=== PATIENT | female | born 1995 | race Caucasian/White ===

== ENCOUNTER 2019-02-18 07:08 | Outpatient (CLI) | payer MEDICAID ==
[2019-02-18 07:46] VITALS: BP 100/56
[2019-02-18] MEDS ORDERED: LACTATED RINGERS 1,000 ML IV SCH (08:00)
--- NOTE | 2019-02-18 12:02 | Ultrasound Report ---
ULTRASOUND BIOPHYSICAL PROFILE AND LIMITED OB ULTRASOUND INDICATION / CLINICAL INFORMATION: well-being. evaluation and [place]. COMPARISON: None available. FINDINGS: BREATHING MOVEMENT = 2 GROSS BODY MOVEMENT = 2 TONE = 2 QUALITATIVE AMNIOTIC FLUID VOLUME = 2 TOTAL BIOPHYSICAL SCORE = 8/8 AMNIOTIC FLUID INDEX (cm) = 10.5 PRESENTATION: Cephalic. HEART RATE (beats per minute): 123 IMPRESSION: biophysical profile = 03/19 Signer Name: Wes Burks MD Signed: 02/18/2019 11:57 AM Workstation Name: [id number]
== END 2019-02-18 10:39 | disposition home or self-care (01) ==
LOC: TRG 07:08
PROVIDERS: ATTEND Obstetrics & Gynecology
DX: O62.9 Abnormality of forces of labor, unspecified (principal); Z3A.38 38 weeks gestation of pregnancy
CPT/HCPCS: 59025; 76815; 76819; 96360; 96361; J7120

== ENCOUNTER 2019-02-26 03:52 | Outpatient (CLI) | payer MEDICAID ==
[2019-02-26 04:22] VITALS: BP 104/60
== END 2019-02-26 05:16 | disposition home or self-care (01) ==
LOC: TRG 03:52
PROVIDERS: ATTEND Obstetrics & Gynecology
DX: O62.8 Other abnormalities of forces of labor (principal); Z3A.40 40 weeks gestation of pregnancy
CPT/HCPCS: 59025

== ENCOUNTER 2019-03-04 09:01 | Inpatient (IN) | payer MEDICAID ==
[2019-03-04] MEDS ORDERED: PHENERGAN PO PRN (10:30)
[2019-03-04] MEDS ORDERED: SUBLIMAZE IV PRN (10:30)
[2019-03-04] MEDS ORDERED: XYLOCAINE 2% INFILTRATI NR (10:30)
[2019-03-04] MEDS ORDERED: BRETHINE SUB-Q PRN (10:30)
[2019-03-04] MEDS ORDERED: BRETHINE IVP PRN (10:30)
[2019-03-04 10:53] LABS: Hematocrit 33.3 % (30.3-42.9); Mean Corpuscular HGB Conc 36 % (30-34); Mean Corpuscular Volume 85 fl (79-97); Platelet Count 162 K/mm3 (140-440); Red Blood Count 3.91 M/mm3 (3.65-5.03); Red Cell Distribution Width 13.8 % (13.2-15.2)
[2019-03-04] MEDS ORDERED: CYTOTEC VG ONE (11:00)
[2019-03-04] MEDS ORDERED: MINERAL OIL PO PRN (11:00)
[2019-03-04] MEDS ORDERED: ZOFRAN IV PRN (11:00)
[2019-03-04] MEDS ORDERED: LACTATED RINGERS 1,000 ML IV SCH (11:00)
[2019-03-04] MEDS ORDERED: AMPICILLIN/NS 2 GM/100 ML 2 GM/100 ML BAG IV ONE (11:00)
[2019-03-04] MEDS ORDERED: PITOCin/NS 20 UNIT/1000ML DRIP 20 UNITS/1,000 ML BAG IV SCH (11:00)
[2019-03-04] MEDS ORDERED: PITOCin/NS 30 UNIT/500ML 30 UNITS/500 ML BAG IV SCH (11:00)
[2019-03-04] MEDS ORDERED: AMPICILLIN/NS 1 GM/50 ML 1 GM/50 ML BAG IV SCH (15:00)
[2019-03-04] MEDS ORDERED: CYTOTEC ONE (21:32)
[2019-03-04] MEDS: CYTOTEC VG SCH (21:57)
[2019-03-05] MEDS: CYTOTEC VG SCH (00:58)
--- NOTE | 2019-03-05 09:27 | History and Physical Report ---
History of Present Illness Date of examination: 03/05/19 Date of admission: 03/04/19 09:01 Chief complaint: I'm overdue History of present illness: Pt is a 23 year old who presents for post dates induction of labor with EDC 02/28/19. Pt has had an uncomplicated course and started care in the first trimester Past History Past Medical History: no pertinent history Past Surgical History: no surgical history Social history: single - Obstetrical History Expected Date of Delivery: 02/28/19 Actual Gestation: 40 Week(s) 5 Day(s) : 1 Medications and Allergies Allergies Allergy/AdvReac Type Severity Reaction Status Date / Time latex Allergy Itching Verified 02/18/19 07:40 Home Medications Medication Instructions Recorded Confirmed Last Taken Type Vit-Fe Fumar-FA [ 1 tab PO DAILY 02/26/19 02/26/19 02/25/19 History Vitamin] Active Meds: Active Medications Ephedrine Sulfate (Ephedrine Sulfate) 10 mg IV Q2M PRN PRN Reason: Hypotension Fentanyl (Sublimaze) 100 mcg IV Q2H PRN PRN Reason: Labor Pain Oxytocin/Sodium Chloride (Pitocin/Ns 20 Unit/1000ml Drip) 20 units in 1,000 mls @ 125 mls/hr IV DIRECT YOAN Oxytocin/Sodium Chloride (Pitocin/Ns 30 Unit/500ml) 30 units in 500 mls @ 4 mls/hr IV TITR YOAN; Protocol Last Admin: 03/05/19 09:20 Dose: 4 ml/hr, 4 mls/hr Documented by: Lactated Ringer's (Lactated Ringers) 1,000 mls @ 125 mls/hr IV DIRECT YOAN Last Admin: 03/05/19 07:29 Dose: 125 mls/hr Documented by: Ampicillin Sodium (Ampicillin/Ns 1 Gm/50 Ml) 1 gm in 50 mls @ 100 mls/hr IV Q4H YOAN; Protocol Lidocaine (Xylocaine 2%) 20 ml INFILTRATI ONCE NR Stop: 03/05/19 10:29 Mineral Oil (Mineral Oil) 30 ml PO QHS PRN PRN Reason: Constipation Misoprostol (Cytotec) 25 mcg VG Q3HR YOAN Last Admin: 03/05/19 00:58 Dose: 25 mcg Documented by: Ondansetron HCl (Zofran) 4 mg IV Q8H PRN PRN Reason: Nausea And Vomiting Promethazine HCl (Phenergan) 25 mg PO Q6H PRN PRN Reason: Nausea And Vomiting Terbutaline Sulfate (Brethine) 0.25 mg SUB-Q ONCE PRN PRN Reason: Hyperstimulation/Hypertonicity Terbutaline Sulfate (Brethine) 0.25 mg IVP ONCE PRN PRN Reason: Hyperstimulation/Hypertonicity Review of Systems All systems: negative Genitourinary: leakage of fluid, contractions - Vital Signs Vital signs: Vital Signs Temp 98.1 F 03/04/19 10:29 Temp Pulse Resp BP Pulse Ox 97.5 F L 73 18 105/57 96 03/05/19 07:15 03/05/19 08:09 03/05/19 07:15 03/05/19 08:09 03/04/19 12:18 - Physical Exam Breasts: Cardiovascular: Regular rate, Normal S1, Normal S2 Abdomen: Positive: normal appearance, soft, normal bowel sounds. Negative: distention, tenderness Vulva: both: normal Vagina: Positive: normal moisture. Negative: discharge Cervix: Negative: lesion, discharge Uterus: Positive: normal size, normal contour Adnexa: both: normal Anus/Rectum: Positive: normal perianal skin, heme negative. Negative: rectal mass, hemorrhoids Extremities: Deep Tendon Reflex Grade: Normal +2 - Obstetrical Cervical Dilatation: 1 Cervical Effacement Percentage: 50 station: -3 Uterine Contraction Pattern: Irregular Results Result Diagrams: 03/04/19 10:24 Abnormal lab results 03/04/19 Range/Units 10:24 MCHC 36 H (30-34) % All other labs normal. Assessment and Plan IUP at 40.5 here for post dates induction. Admit to L&D. AROM, begin pitocin. Anticipate .
--- NOTE | 2019-03-05 14:02 | Anesthesia Consultation ---
Anesthesia Consult and Med Hx Date of service: 03/05/19 - Airway Anesthetic Teeth Evaluation: Good ROM Head & Neck: Adequate Mental/Hyoid Distance: Adequate Mallampati Class: Class II Intubation Access Assessment: Probably Good - Pulmonary Exam CTA: Yes - Cardiac Exam Cardiac Exam: RRR - Pre-Operative Health Status ASA Pre-Surgery Classification: ASA2 Proposed Anesthetic Plan: Epidural - Pulmonary Hx Asthma: No COPD: No Hx Pneumonia: No - Cardiovascular System Hx Hypertension: No - Central Nervous System Hx Seizures: No Hx Psychiatric Problems: No - Endocrine Hx Renal Disease: No Hx End Stage Renal Disease: No Hx Hypothyroidism: No Hx Hyperthyroidism: No - Hematic Hx Anemia: No Hx Sickle Cell Disease: No - Other Systems Hx Alcohol Use: No
[2019-03-05] MEDS ORDERED: NARCAN 2 MG/2 ML IV PRN (14:03)
[2019-03-05] MEDS: fentaNYL-BUPIV 2 MCG/ML-0.125% 200 MCG/100 ML BAG EPIDURAL SCH ×2 (14:55→23:37)
--- NOTE | 2019-03-05 22:54 | Event Note ---
Date: 03/05/19 In to see patient. Was informed that patient was 7cm at 2pm this afternoon. Nurse was advised to turn patient to help move head down. Pt just examined and found to be 5cm. Pt has been arom since 0900. Advised staff to turn patient. Will recheck in one hour. If no change plan for c/s secondary to failed induction and failure to progress.
[2019-03-06] MEDS ORDERED: BICITRA PO ONE
[2019-03-06] MEDS ORDERED: ANCEF/STERILE WATER 2 GM/20 ML 2 GM/20 ML SYRINGE IV NR
[2019-03-06] MEDS ORDERED: REGLAN IV ONE
--- NOTE | 2019-03-06 00:02 | Event Note ---
Date: 03/06/19 Pt rechecked and found to have zero change. Plan to proceed with . Consents signed and on chart.
[2019-03-06] MEDS ORDERED: PEPCID IV ONE ×2 (00:03)
[2019-03-06] MEDS ORDERED: REGLAN ONE (00:03)
[2019-03-06] MEDS ORDERED: BICITRA ONE (00:03)
[2019-03-06] MEDS ORDERED: ANCEF/STERILE WATER 2 GM/20 ML 2 GM/20 ML SYRINGE IV ONE (00:03)
[2019-03-06] MEDS ORDERED: XYLOCAINE MPF 2% ONE (00:21)
[2019-03-06] MEDS ORDERED: DECADRON ONE (00:48)
[2019-03-06] MEDS ORDERED: ZOFRAN ONE (00:48)
[2019-03-06] MEDS ORDERED: METHERGINE IM ONE ×2 (01:01→05:12)
--- NOTE | 2019-03-06 01:32 | Procedure Note ---
OB Delivery Note - Delivery Date of Delivery: 03/06/19 Surgeon: SHRUTHI GANDHI Estimated blood loss: other (600) - Section Preop diagnosis: arrest of descent, arrest of dilation Postop diagnosis: same section procedure: section, primary low transverse Disposition: PACU Complications: none Narrative: see op report - A at 1 minute: 8 at 5 minutes: 9 Infant Gender: Male
--- NOTE | 2019-03-06 01:37 | Operative Report ---
Operative Report Operative Report: The operative report for patient Yelena Wills Date of service 03/06/2019 Preoperative diagnosis: Intrauterine at 40-6/7 weeks 2. Failed induction of labor 3. Arrest of descent Postoperative diagnosis: Same with deep transverse arrest Procedure: Neda low transverse section Surgeon: Dr. Heather Watters EBL: 600 mL Urine output: 100 mL IV fluids: 1000 mL Findings: Viable male in the vertex occiput posterior position. Weight 7 lbs. 10 oz. 3484 g Apgars 8 and 9]. Otherwise normal pelvic anatomy Specimens: None Complications: None Procedure: The patient was admitted to the OR with IV running and in place. She was properly identified as herself. Her spinal had been placed in the room and she was already under the effects of anesthesia upon entry into the OR. She was placed in the dorsal supine position with a leftward tilt. A Chand catheter had been inserted in the room. She was then prepped and draped in the normal sterile fashion. An Allis test was used to confirm adequate anesthesia. Once confirmed, the incision was made with the scalpel and carried to the underlying fascia using the scalpel and the Bovie. The fascia was incised in the midline and incision was extended bilaterally using the curved Vázquez scissors. The fascia was then dissected from the underlying rectus muscles in a series of sharp and blunt dissection using the Vázquez scissors. Muscles were in the in the midline sharply using Metzenbaum scissors and the peritoneum was entered into bluntly using the surgeon's fingers. A bladder blade was then placed into the incision to protect the bladder. Following this the bladder flap was created. Hysterotomy incision was then made in the scalpel. Upon uterine entry, the amniotic sac was ruptured for clear fluid. The infant was then delivered in the occiput transverse position. His mouth and nose were suctioned on the field. The cord was clamped and cut and he was handed to the waiting NICU personnel. The placenta was delivered manually and taken off the field. The uterus was then exteriorized and cleared of all clots and debris. The hysterotomy incision was then closed in a running locked fashion using 0 Vicryl. The abdomen was then copiously irrigated with warm normal saline. Following this the uterus was replaced into the abdominal cavity. At this point the muscles were reapproximated in the midline using individual sutures of 0 Vicryl. Following this the fascia was closed in a running fashion using 0 Vicryl. Tissue was then copiously irrigated. Skin was closed in a running fashion using 3-0 Monocryl. The sponge lap needle and instrument counts were correct 2. The patient tolerated the procedure well. She was taken to recovery in stable condition.
[2019-03-06] MEDS ORDERED: NUBAIN IV PRN (01:43)
--- NOTE | 2019-03-06 01:43 | Anesthesia Day of Surgery ---
Anesthesia Day of Surgery - Day of Surgery Patient Examined: Yes Patient H&P Reviewed: Yes Patient is NPO: Yes
[2019-03-06] MEDS ORDERED: ZOFRAN IV PRN (01:44)
[2019-03-06] MEDS ORDERED: PHENERGAN PO PRN (01:44)
[2019-03-06] MEDS ORDERED: DILAUDID IV PRN ×2 (01:44)
[2019-03-06] MEDS ORDERED: PHENERGAN PR PRN (01:44)
[2019-03-06] MEDS ORDERED: NARCAN 0.4 MG/1 ML IV PRN ×2 (01:44→04:54)
[2019-03-06] MEDS ORDERED: SODIUM CHLORIDE FLUSH SYRINGE 10 ML IV NR ×2 (02:00→04:54)
[2019-03-06] MEDS ORDERED: MILK OF MAGNESIA PO PRN (04:54)
[2019-03-06] MEDS ORDERED: PERCOCET 5/325 PO PRN (04:54)
[2019-03-06] MEDS ORDERED: MYLICON PO PRN (04:54)
[2019-03-06] MEDS ORDERED: IBUPROFEN PO PRN (04:54)
[2019-03-06] MEDS ORDERED: PITOCin/NS 20 UNIT/1000ML DRIP 20 UNITS/1,000 ML BAG IV SCH (04:54)
[2019-03-06] MEDS ORDERED: LANSINOH TP PRN (04:54)
[2019-03-06] MEDS ORDERED: TYLENOL PO PRN (04:54)
[2019-03-06] MEDS ORDERED: MORPHINE IV PRN (04:54)
[2019-03-06] MEDS ORDERED: D5LR 1,000 ML IV SCH (04:54)
[2019-03-06] MEDS ORDERED: TUCKS PAD TP PRN (04:54)
[2019-03-06] MEDS: METHERGINE PO SCH ×3 (06:07→21:01)
[2019-03-06] MEDS: TORADOL IV SCH ×3 (06:07→20:55)
[2019-03-06] MEDS: ANCEF/NS 1 GM/50 ML 1 GM/50 ML BAG IV SCH (09:32)
[2019-03-06 14:16] LABS: Hematocrit 33.4 % (30.3-42.9); Hemoglobin 11.5 gm/dl (10.1-14.3)
[2019-03-06] MEDS: TYLENOL PO SCH (20:57)
[2019-03-07] MEDS: TYLENOL PO SCH ×4 (01:50→21:34)
[2019-03-07] MEDS: TORADOL IV SCH ×4 (01:51→21:34)
[2019-03-07] MEDS: METHERGINE PO SCH (05:56)
[2019-03-07] MEDS: ANCEF/NS 1 GM/50 ML 1 GM/50 ML BAG IV SCH (08:18)
--- NOTE | 2019-03-07 12:39 | Progress Note ---
Assessment and Plan A: POD1 s/p pLTCS. vital signs and labs stable P: Continue current care. Anticipate d/c on POD3. Order abdominal binder. Subjective - Subjective Date of service: 03/07/19 Principal diagnosis: Post-op Interval history: Pt is POD1 s/p primary LTCS for arrest of dilation Patient reports: appetite normal, voiding normally, pain well controlled, flatus, ambulating normally [place]: doing well, nursing well, bottle feeding (supplementary formula per mother preference) Objective - Vital Signs Latest vital signs: Vital Signs Temp Pulse Resp BP Pulse Ox 03/07/19 07:54 97.9 F 62 20 100/64 96 03/06/19 23:41 97.6 F 80 20 101/67 96 03/06/19 21:51 98.2 F 69 20 102/61 93 03/06/19 16:46 97.7 F 69 16 102/63 97 03/06/19 15:03 20 03/06/19 12:44 97.8 F 73 16 98/51 96 Intake and Output 03/06/19 03/07/19 03/07/19 23:59 07:59 15:59 Intake Total 50 240 360 Output Total 500 400 Balance -450 -160 360 Intake: IV 50 ANCEF/NS 1 GM/50 ML 1 gm 50 In 50 ml @ 100 mls/hr IV Q8H [facility] Rx#:[id number] Oral 240 360 Output: Urine 500 400 Void 500 400 Other: Total, Intake Amount 240 360 Total, Output Amount 500 400 # Voids Void 1 - Exam Cardiovascular: Present: Regular rate, Normal S1, Normal S2, No murmurs Lungs: Present: Clear to auscultation, Normal air movement Abdomen: Present: normal appearance, soft, normal bowel sounds. Absent: distention, tenderness, guarding Uterus: Present: normal, firm, fundal height below umbilicus Extremities: Present: normal Incision: Present: normal, dry, intact
[2019-03-07] MEDS: PRENATAL VITAMIN PO SCH (15:27)
[2019-03-08] MEDS: TYLENOL PO SCH (03:26)
--- NOTE | 2019-03-08 09:42 | Progress Note ---
Assessment and Plan A: POD2 s/p pLTCS. Vital signs and labs stable P: Discharge to home today Subjective - Subjective Date of service: 03/08/19 Principal diagnosis: Post-op Interval history: Pt is POD2 s/p primary LTCS for arrest of dilation Patient reports: appetite normal, voiding normally, pain well controlled, flatus, bowel movement, ambulating normally [place]: doing well, nursing well, bottle feeding (supplementary) Objective - Vital Signs Latest vital signs: Vital Signs Temp Pulse Resp BP Pulse Ox 03/08/19 07:24 98.0 F 66 20 99/60 93 03/08/19 00:01 98.0 F 75 20 110/64 93 03/07/19 16:09 97.9 F 73 20 119/64 97 Intake and Output 03/07/19 03/08/19 03/08/19 23:59 07:59 15:59 Intake Total 480 240 Balance 480 240 Intake: Oral 480 240 Other: Total, Intake Amount 480 240 # Voids Void 1 1 # Bowel Movements 1 - Exam Cardiovascular: Present: Regular rate, Normal S1, Normal S2, No murmurs Lungs: Present: Clear to auscultation, Normal air movement Abdomen: Present: normal appearance, soft. Absent: distention, tenderness, guarding Uterus: Present: normal, firm, fundal height below umbilicus Extremities: Present: normal Incision: Present: normal, dry, intact. Absent: erythematous, suppurative, edematous
--- NOTE | 2019-03-08 09:45 | Discharge Summary ---
Providers - Providers Date of Admission: 03/04/19 09:01 Date of discharge: 03/08/19 Attending physician: SHRUTHI GANDHI Primary care physician: SHRUTHI GANDHI Hospitalization Reason for admission: induction of labor Delivery: Procedure: primary low transverse Incision: normal, dry, intact Other procedures: none complications: none Discharge diagnosis: IUP at term delivered baby: male Condition at discharge: Good Disposition: DC-01 TO HOME OR SELFCARE Plan - Discharge Medications Prescriptions: Docusate Sodium [Colace] 100 mg PO BID PRN #60 capsule PRN Reason: Constipation Ibuprofen [Motrin] 800 mg PO Q8HR PRN #40 tablet PRN Reason: Pain, Moderate (4-6) oxyCODONE /ACETAMINOPHEN [Percocet 5/325] 2 tab PO Q6HR PRN #40 tablet PRN Reason: Pain - Provider Discharge Summary Activity: routine, no sex for 6 weeks, no heavy lifting 4 weeks, no strenuous exercise Diet: routine Instructions: routine Additional instructions: [] Smoking cessation referral if applicable(refer to patient education folder for contact #) [] Refer to [facility]'s [facility] Booklet Call your doctor immediately for: * Fever > 100.5 * Heavy vaginal bleeding ( >1 pad per hour) * Severe persistent headache * Shortness of breath * Reddened, hot, painful area to leg or breast * Drainage or odor from incision. * Keep incision clean and dry at all times and follow doctor's instructions regarding bathing/showering - Follow up plan Follow up: SHRUTHI GANDHI MD [Primary Care Provider] - 14 Days
[2019-03-08] MEDS: PRENATAL VITAMIN PO SCH (11:35)
[2019-03-08 12:46] VITALS: BP 112/75
== END 2019-03-08 13:05 | disposition home or self-care (01) | DRG 766 ==
LOC: LD 09:01 → OB 03-06 04:29
PROVIDERS: ADMIT Obstetrics & Gynecology; ATTEND Obstetrics & Gynecology
PROC: 10D00Z1 Extraction of Products of Conception, Low, Open Approach (ICD-10-PCS; principal; 2019-03-06)
DX: O48.0 Post-term pregnancy (principal); Z37.0 Single live birth; O61.9 Failed induction of labor, unspecified; Z3A.40 40 weeks gestation of pregnancy; O62.1 Secondary uterine inertia; Z91.040 Latex allergy status
CPT/HCPCS: 36415; 85014; 85018; 85027; 86592; 86850; 86900; 86901; G0378; J0290; J0690; J1100; J1885; J2210; J2405; J2590; J2765; J7120; J7121